=== PATIENT | female | born 2000 | race Caucasian/White ===

== ENCOUNTER 2018-06-19 20:39 | Emergency (ER) | payer OTHER ==
--- NOTE | 2018-06-19 20:42 | ER Report ---
History and Physical Time Seen By MD: 20:41 HPI/ROS CHIEF COMPLAINT: Right patellar dislocation HISTORY OF PRESENT ILLNESS: Patient is a 17-year-old female here with complaints of right knee pain and right patellar dislocation which occurred shortly prior to arrival. Patient reports having previous episodes of dislocations. Patient received 100 g of fentanyl prior to arrival as well as Ativan 2 mg. Patient refused manual reduction without sedation due to previous bad experiences in the emergency department. Patient is neurovascularly intact at time of evaluation. Patient was [place] a dance [place] when the dislocation occurred. Patient denies further injury at this time. REVIEW OF SYSTEMS: Constitutional: No fever, no chills. Eyes: No discharge. ENT: No sore throat. Cardiovascular: No chest pain, no palpitations. Respiratory: No cough, no shortness of breath. Gastrointestinal: No abdominal pain, no vomiting. Genitourinary: No hematuria. Musculoskeletal: + Right knee pain with visible deformity Skin: No rashes. Neurological: Neurovascularly intact distal to the injury site. Allergies: Coded Allergies: oxycodone (Verified Allergy, Intermediate, SEVERE NAUSEA AND VOMITING, ) tramadol (Verified Allergy, Intermediate, SEVERE NAUSEA AND VOMITING, 06/19) Home Meds Active Scripts Naproxen Sodium (ALEVE) 220 Mg Capsule, 440 MG PO BID, #20 CAPSULE Prov:STIVEN TURPIN DO 06/19/18 Constitutional Vital Sign - Last 24 Hours 06/19/18 06/19/18 06/19/18 06/19/18 20:40 20:41 20:43 20:45 Temp 99.2 Pulse 114 106 108 101 Resp 16 B/P (MAP) 115/78 Pulse Ox 97 97 97 95 06/19/18 06/19/18 06/19/18 06/19/18 20:47 20:49 20:50 20:51 Pulse 98 105 112 B/P (MAP) 117/78 (91) Pulse Ox 96 96 96 06/19/18 06/19/18 06/19/18 06/19/18 20:53 20:55 20:57 20:59 Pulse 99 108 115 123 Pulse Ox 94 92 98 98 06/19/18 06/19/18 06/19/18 06/19/18 21:00 21:01 21:03 21:05 Pulse 101 103 104 B/P (MAP) 119/60 (79) Pulse Ox 96 96 97 06/19/1806/19/06/19/18 06/19/18 21:07 21:09 21:11 21:13 Pulse 93 102 94 98 Pulse Ox 95 97 97 96 06/19/18 06/19/18/06/19/18 21:15 21:17 21:19 21:21 Pulse 94 105 94 109 Resp 7 9 9 7 B/P (MAP) 109/78 (88) Pulse Ox 94 95 94 86 06/19/18 06/19/18 06/19/18 06/19/18 21:23 21:24 21:25 21:27 Pulse 100 108 106 Resp 17 11 8 B/P (MAP) 100/90 (93) Pulse Ox 95 98 98 06/19/18 06/19/18 06/19/18 06/19/18 21:28 21:29 21:31 21:32 Pulse 99 90 Resp 9 13 B/P (MAP) 116/78 (91) 120/97 (105) Pulse Ox 100 96 06/19/18 06/19/18 06/19/18 06/19/18 21:33 21:35 21:36 21:37 Pulse 84 83 108 Resp 12 20 15 B/P (MAP) 126/100 (109) Pulse Ox 98 98 98 06/19/18 06/19/18 06/19/18 06/19/18 21:39 21:40 21:41 21:43 Pulse 89 87 101 Resp 8 31 34 B/P (MAP) 110/90 (97) Pulse Ox 98 97 97 06/19/18 06/19/18 06/19/18 06/19/18 21:44 21:45 21:47 21:48 Pulse 87 89 Resp 11 12 B/P (MAP) 122/83 (96) 121/81 (94) Pulse Ox 96 96 06/19/18 06/19/18 06/19/18 06/19/18 21:49 21:51 21:53 21:55 Pulse 112 89 98 95 Resp 57 17 11 15 Pulse Ox 92 95 89 89 06/19/1818 //06/19/18 21:57 21:59 22:00 22:01 Pulse 98 94 80 Resp 6 15 8 B/P (MAP) 118/79 (92) Pulse Ox 88 89 98 06/19/18 06/19/18 06/19/18 06/19/18 22:03 22:05 22:07 22:09 Pulse 84 78 78 75 Resp 9 13 23 10 Pulse Ox 98 98 98 97 06/19/18 06/19/18 06/19/18 06/19/18 22:11 22:16 22:21 22:26 Pulse 85 76 70 77 Resp 7 11 10 25 Pulse Ox 93 98 98 98 06/19/18 06/19/18 06/19/18 06/19/18 22:30 22:31 22:36 22:41 Pulse 67 74 72 Resp 12 10 13 B/P (MAP) 116/77 (90) Pulse Ox 98 98 98 06/19/18 06/19/18 06/19/18 06/19/18 22:46 22:51 22:56 23:00 Pulse 65 77 70 Resp 10 17 9 B/P (MAP) 126/82 (97) Pulse Ox 98 98 99 06/19/18 06/19/18 06/19/18 06/19/18 23:01 23:06 23:11 23:16 Pulse 100 62 65 72 Resp 12 13 11 9 Pulse Ox 99 98 99 97 Physical Exam General Appearance: The patient is alert, has no immediate need for airway protection and no signs of toxicity. Eyes: Pupils equal and round no pallor or injection. ENT, Mouth: Mucous membranes are moist. Respiratory: There are no retractions, lungs are clear to auscultation. Cardiovascular: Tachycardic, sinus Gastrointestinal: Abdomen is soft and non tender, no masses, bowel sounds normal. Neurological: Neurovascularly intact distal to the injury site Skin: Warm and dry, no rashes. Musculoskeletal: + Right knee deformity, pain with range of motion of the knee DIFFERENTIAL DIAGNOSIS: After history and physical exam differential diagnosis was considered for patellar dislocation, fracture, ligamentous tear Medical Decision Making EKG/Imaging Imaging RIGHT KNEE: Indication: Patellar dislocation. Technique: 3 views of the knee were obtained. Comparison: None. Findings: The frontal image demonstrates lateral dislocation of the patella. There are no signs of patellar or femoral fracture. The skeletal structures are otherwise unremarkable. There is normal mineralization. No focal soft tissue deformity is identified. IMPRESSION: Lateral dislocation of the patella. No evidence of fracture. RIGHT KNEE: Indication: Post-reduction Technique: 3 views of the knee were obtained. Comparison: A prior study from earlier the same day. Findings: The alignment of the patella appears improved. There is no residual dislocation. There are no signs of fracture. The skeletal and soft tissue structures are otherwise unchanged. IMPRESSION: Satisfactory reduction. ED Course/Re-evaluation ED Course Patient is an 17-year-old female here with complaints of right patellar dislocation which she sustained during dance this evening. Patient had prior episodes of dislocations in the past and is very anxious and distressed about having this happen again. Patient is neurovascularly intact at time of evaluation. I initially offered to attempt reduction as the patient had just received Ativan and fentanyl by EMS however the patient refused. X-ray imaging confirmed dislocation. After speaking further with family as well as the patient , the patient requested sedation and would not consent to an attempt for reduction without sedation. Sedation using etomidate was performed and the patella was successfully reduced with x-ray confirmation. During the course of treatment, the patient received Dilaudid, Zofran, Percocet to go. She was placed in a knee immobilizer and advised to follow-up with orthopedics for further evaluation. Procedure Procedure: Procedural sedation. A pre-sedation evaluation was completed. Patient is an appropriate candidate for procedural sedation. The risks of the sedation were discussed with the patient. A time out was completed. The patient was sedated with etomidate. The patient was monitored with continuous pulse oximetry and pvc monitor. There were no complications and no significant hypoxemia. I remained at the bedside for the sedation. The total time I spent in the procedural sedation was 20 minutes. Decision to Disposition Date: Jun 20, 2018 Decision to Disposition Time: 00:07 Depart Departure Latest Vital Signs Vital Signs Date Time Temp Pulse Resp B/P (MAP) Pulse Ox O2 Delivery O2 Flow Rate FiO2 06/19/18 23:16 72 9 97 06/19/18 23:00 126/82 (97) 06/19/18 20:40 99.2 Impression: Primary Impression: Patellar dislocation Condition: Improved Disposition: HOME OR SELF-CARE New Scripts Naproxen Sodium (ALEVE) 220 Mg Capsule 440 MG PO BID, #20 CAPSULE Prov: STIVEN TURPIN DO 06/19/18 Patient Instructions: Patellar Dislocation (ED) Additional Instructions: Please keep the knee in the knee immobilizer until you're able to follow up with orthopedics. Please return promptly if you develop worsening pain, worsening swelling, numbness or tingling. STIVEN TURPIN DO Jun 19, 2018 20:42
[2018-06-19] MEDS ORDERED: ETOMIDATE 20 MG/10 ML VIAL IVP ONE (21:00)
[2018-06-19] MEDS ORDERED: HYDROmorphone* 1 MG/ML 1 MG/ML ML IVP ONE (21:05)
[2018-06-19] MEDS ORDERED: HYDROmorphone* 1 MG/ML 1 MG/ML ML ONE (21:07)
[2018-06-19] MEDS ORDERED: KETOROLAC 30 MG/ML VIAL IVP ONE (21:40)
--- NOTE | 2018-06-19 21:43 | RADIOLOGY IMAGING REPORT ---
FACILITY: [facility] [place] PATIENT NAME: Ramya Ontiveros : 2000 MR: [id number] V: [id number] EXAM DATE: ORDERING PHYSICIAN: STIVEN TURPIN TECHNOLOGIST: Location: [facility] Patient: Ramya Ontiveros : 2000 Visit/Account:[id number] Date of Sevice: 06/19/2018 RIGHT KNEE: Indication: Patellar dislocation. Technique: 3 views of the knee were obtained. Comparison: None. Findings: The frontal image demonstrates lateral dislocation of the patella. There are no signs of pa tellar or femoral fracture. The skeletal structures are otherwise unremarkable. There is normal operations examiner alization. No focal soft tissue deformity is identified. IMPRESSION: Lateral dislocation of the patella. No evidence of fracture. Report Dictated By: Marlon Naranjo MD at 06/19/2018 9:37 PM Report E-Signed By: Marlon Naranjo MD at 06/19/2018 9:39 PM WSN:[id number]
[2018-06-19] MEDS ORDERED: EMS NS 0.9%(*) 1000 ML BAG 1,000 ML IV ONE (22:15)
--- NOTE | 2018-06-19 22:26 | RADIOLOGY IMAGING REPORT ---
FACILITY: [facility] [place] PATIENT NAME: Ramya Ontiveros : 2000 MR: [id number] V: [id number] EXAM DATE: ORDERING PHYSICIAN: STIVEN TURPIN TECHNOLOGIST: [facility] Patient: Ramya Ontiveros : 2000 Visit/Account:[id number] Date of Sevice: 06/19/2018 RIGHT KNEE: Indication: Post-reduction Technique: 3 views of the knee were obtained. Comparison: A prior study from earlier the same day. Findings: The alignment of the patella appears improved. There is no residual dislocation. There are no signs of fracture. The skeletal and soft tissue structures are otherwise unchanged. IMPRESSION: Satisfactory reduction. Report Dictated By: Marlon Naranjo MD at 06/19/2018 10:21 PM Report E-Signed By: Maroln Naranjo MD at 06/19/2018 10:23 PM WSN:[id number]
[2018-06-19 23:00] VITALS: BP 126/82
[2018-06-19] MEDS ORDERED: ONDANSETRON 4 MG ODT TABDP SL ONE (23:05)
[2018-06-19] MEDS ORDERED: ONDANSETRON 4 MG ODT TH SL ONE (23:30)
[2018-06-19] MEDS ORDERED: oxyCODONE/ACETAMIN 5/325MG TH 2 TAB/BOTTLE PO ONE (23:30)
[2018-06-19] MEDS ORDERED: NAPR220C12 PO (23:47)
== END 2018-06-19 23:40 | disposition home or self-care (01) ==
LOC: ER 20:48
DX: S83.004A Unspecified dislocation of right patella, initial encounter (principal)
CPT/HCPCS: 27560; 73562; 96361; 96374; 96375; 99153; 99285; J1170; J1885; J3490; L1830; S0119; 99152

== ENCOUNTER → 2018-06-19 | Outpatient (CLI) | payer OTHER ==
[~2018-06-19] MED LIST: NAPR220C12 PO
== END ==
LOC: AMB 20:03
PROVIDERS: ATTEND Nurse Practitioner
DX: M25.561 Pain in right knee (principal)
CPT/HCPCS: A0425; A0433